=== PATIENT | female | born 2005 | race Two or more races ===

== ENCOUNTER → 2025-02-22 | Outpatient (CLI) | payer BC, SELFPAY ==
--- NOTE | 2025-02-22 14:49 | XR_ITS ---
Examination: Abdomen sonogram, Limited Date and time of exam: February 22, 2025 1500 hours INDICATIONS: Elevated liver enzymes on laboratory examination performed 3 weeks ago Technique: Real-time colindres scale transabdominal sonographic images of the upper abdomen obtained. Findings: 5 mm gallbladder polyp No gallstones, no gallbladder wall thickening Common bile duct 0.2 cm Pancreatic head 2.8 cm Liver 14.9 cm fatty infiltration smooth contour Normal hepatopedal portal venous flow Patent IVC IMPRESSION: 5 mm gallbladder polyp Negative for cholelithiasis, negative for cholecystitis Liver 14.9 cm fatty infiltration smooth contour
[2025-02-22 17:02] LABS: Alanine Aminotransferase 84 U/L (10-49); Albumin, Serum 4.9 gm/dL (3.5-5.0); Alkaline Phosphatase 100 U/L (46-116); Aspartate Amino Transferase 40 U/L (0-34); Bilirubin,Direct 0.4 mg/dL (0.0-0.3); Bilirubin,Total 1.3 mg/dL (0.3-1.2); Total Protein 7.5 gm/dL (5.7-8.2)
[2025-02-22 17:05] LABS: Ferritin 64 ng/mL (7.3-270.7); Iron 85 mcg/dL (50-170); Total Iron Binding Capacity 342 mcg/dL (250-425)
[2025-02-22 17:06] LABS: INR 1.1 (0.9-1.3); Prothrombin Time 11.6 Seconds (9.0-12.2)
[2025-02-22 17:52] LABS: AFP Non-Pregnant 1.50 ng/mL (<8.10); Hepatitis A Antibody IgM Non Reactive (Non React); Hepatitis B Core Antibody IgM Non Reactive (Non React); Hepatitis B Surface Antigen Non Reactive (Non React); Hepatitis C Antibody Non Reactive (Non React)
[2025-02-28 19:50] LABS: Sm Antibody <1.0 NEG AI (<1.0 NEGATIVE)
[2025-03-01 06:18] LABS: ANA Screen, IFA POSITIVE (NEGATIVE); ANA Titer 1:80 titer; Actin Antibody (IgG)* <20 U; Alpha-1-Antitrypsin* 110 mg/dL (83-199); Ceruloplasmin* 25 mg/dL (14-48); Copper* 100 mcg/dL (70-175); Mitochondrial Ab NEGATIVE (NEGATIVE); Sm/RNP Antibody <1.0 NEG AI (<1.0 NEGATIVE)
== END | disposition home or self-care (01) ==
LOC: CDIM 14:45 → COPL 15:15
PROVIDERS: Referring Provider Specialist; Visit Provider Specialist
DX: K82.4 Cholesterolosis of gallbladder (principal); K76.0 Fatty (change of) liver, not elsewhere classified; E78.5 Hyperlipidemia, unspecified
CPT/HCPCS: 36415; 76705; 80074; 80076; 82103; 82105; 82390; 82525; 82728; 83540; 83550; 85610; 86015; 86038; 86235; 86255